=== PATIENT | female | born 1980 | race Caucasian/White ===

== ENCOUNTER 2017-02-21 14:48 | Emergency (ER) | payer BC ==
[2017-02-21 14:57] VITALS: BP 139/76
--- NOTE | 2017-02-21 15:03 | EDM.PDOC ---
ED HPI GENERAL MEDICAL PROBLEM - General Chief Complaint: General Stated Complaint: HEAD PAIN DIZZY Time Seen by Provider: 02/21/17 15:03 - History of Present Illness INITIAL COMMENTS - FREE TEXT/NARRATIVE: 36-year-old female presents emergency room with worsening neck and back pain. The patient has developed some neck and back pain getting worse over the last 4 days or so the patient is now extending into her arms it hurts for her to do any exertional activity with her arms. The patient works at [employer]. Approximately 5-6 days ago the patient helped her parents unload a moving van and did lots of heavy lifting that she is not used to doing. The patient does not have any shortness of breath however she is developing some chest discomfort with deep breathing. With further questioning seems to aggravate the neck and back pain that has been getting worse she has not had any lower extremity swelling. The patient is quite anxious. She describes the pain is been worse between her shoulder blades and shooting anteriorly into her chest. She has no history of hypertension hyperlipidemia heart problems or diabetes no family history of premature coronary artery disease she does not smoke she denies . Patient has been using 600-800 mg of ibuprofen 2-3 times a day and Tylenol thousand milligrams twice a day without much improvement Back Pain Score (Numeric/FACES): 9 - Related Data Allergies Allergy/AdvReac Type Severity Reaction Status Date / Time No Known Allergies Allergy Verified 03/15/14 10:34 CDT Home Meds: Home Meds Sertraline [Zoloft] 100 mg PO DAILY 03/15/14 [History] Cyclobenzaprine [Flexeril] 10 mg PO TID #15 tablet 02/21/17 [Rx] Montelukast [Singulair] 10 mg PO DAILY 02/21/17 [History] Social & Family History - Tobacco Use Smoking Status *Q: Never Smoker Second Hand Smoke Exposure: Yes - Recreational Drug Use Recreational Drug Use: No ED ROS GENERAL - Review of Systems Review Of Systems: See Below Constitutional: Reports: No Symptoms HEENT: Reports: No Symptoms Respiratory: Reports: No Symptoms, Other (She is developing some discomfort with deep breathing this is somewhat minimal) Cardiovascular: Reports: Chest Pain Endocrine: Reports: No Symptoms GI/Abdominal: Reports: No Symptoms Musculoskeletal: Reports: Neck Pain, Shoulder Pain, Arm Pain, Joint Swelling, Muscle Pain, Muscle Stiffness Neurological: Reports: No Symptoms ED EXAM, GENERAL - Physical Exam Exam: See Below Exam Limited By: Other (Patient is somewhat anxious otherwise no acute distress vital signs stable afebrile) General Appearance: Alert, Anxious (Mild) Head: Atraumatic, Normocephalic Neck: Supple, Other (She has some muscle tightness in the paraspinous muscles this tends to aggravate her condition. This extends into her shoulders bilaterally). No: Tender Lateral, Tender Midline Respiratory/Chest: No Respiratory Distress, Lungs Clear, Normal Breath Sounds, Other (Her pain is limited to her thoracic back neck and shoulders and upper arms all aggravated with motion and palpation. This is the same pain that brings her in) Cardiovascular: Normal Peripheral Pulses, Regular Rate, Rhythm, No Edema, No Murmur GI/Abdominal: Normal Bowel Sounds, Soft, Non-Tender Extremities: Other (She has discomfort in her upper extremities with motion otherwise the seem to be doing okay range of motion is not limited by offending motions do aggravate her back and neck discomfort) Neurological: Alert, Oriented, Normal Cognition, No Motor/Sensory Deficits EKG INTERPRETATION EKG Date: 02/21/17 Rhythm: NSR [place]: Normal P-Wave: Present QRS: Normal ST-T: Normal QT: Normal Comparison: NA - No Prior EKG Course - Vital Signs Last Recorded V/S: Last Vital Signs Temp 36.3 C 02/21/17 14:54 Pulse 85 02/21/17 14:54 Resp 16 02/21/17 14:54 BP 139/76 02/21/17 14:54 Pulse Ox 98 02/21/17 14:54 - Orders/Labs/Meds Orders: Active Orders 24 hr Category Date Time Status EKG 12 Lead [EKG Documentation Completion] [RC] STAT Care 02/21/17 15:02 Active EKG Documentation Completion [RC] STAT Care 02/21/17 15:27 Inactive Chest 2V [CR] Stat Exams 02/21/17 15:26 Taken Labs: Laboratory Tests 02/21/17 02/21/17 Range/Units 15:40 15:40 WBC 5.88 (3.98-10.04) K/mm3 RBC 4.49 (3.98-5.22) M/mm3 Hgb 13.5 (11.2-15.7) gm/L Hct 41.4 (34.1-44.9) % MCV 92.2 (79.4-94.8) fl MCH 30.1 (25.6-32.2) pg MCHC 32.6 (32.2-35.5) g/dl RDW Std Deviation 42.7 (36.4-46.3) fL Plt Count 313 (182-369) K/mm3 MPV 9.5 (9.4-12.3) fl Neutrophils % (Manual) 60 (40-60) % Band Neutrophils % 0 (0-10) % Lymphocytes % (Manual) 35 (20-40) % Atypical Lymphs % 0 % Monocytes % (Manual) 3 (2-10) % Eosinophils % (Manual) 1 (0.7-5.8) % Basophils % (Manual) 1 (0.1-1.2) Platelet Estimate Adequate Plt Morphology Comment Normal RBC Morph Comment Normal Sodium 141 (136-145) mEq/L Potassium 3.6 (3.5-5.1) mEq/L Chloride 105 (98-107) mEq/L Carbon Dioxide 26 (21-32) mEq/L Anion Gap 13.6 (5-15) BUN 8 (7-18) mg/dL Creatinine 0.7 (0.55-1.02) mg/dL Est Cr Clr Drug Dosing 121.79 mL/min Estimated GFR (MDRD) > 60 (>60) mL/min BUN/Creatinine Ratio 11.4 L (14-18) Glucose 94 (74-106) mg/dL Calcium 8.8 (8.5-10.1) mg/dL Total Bilirubin 0.3 (0.2-1.0) mg/dL AST 17 (15-37) U/L ALT 18 (14-59) U/L Alkaline Phosphatase 45 L (46-116) U/L Troponin I < 0.017 (0.00-0.056) ng/mL Total Protein 7.1 (6.4-8.2) g/dl Albumin 4.1 (3.4-5.0) g/dl Globulin 3.0 gm/dL Albumin/Globulin Ratio 1.4 (1-2) Meds: Medications Discontinued Medications Generic Name Dose Route Start Last Admin Trade Name Freq PRN Reason Stop Dose Admin Ketorolac Tromethamine 30 mg 02/21/17 17:23 02/21/17 17:29 Toradol IM 02/21/17 17:24 30 mg ONETIME ONE Administration - Re-Assessments/Exams Free Text/Narrative Re-Assessment/Exam: 02/21/17 18:26 Patient's pain is improved from an 8/10 to a 5 or 6 with 30 mg of IM Toradol she found the shot unpleasant her arm this is getting better now. Labs unrevealing chest x-ray normal. Troponin normal. The patient will continue her ibuprofen starting tomorrow and her Tylenol dose can be increased. She'll be started on Flexeril 10 mg 3 times a day for 2 days and then 1 in the evening thereafter I will take her off work the rest of today tomorr and Friday Departure - Departure Time of Disposition: 18:28 Disposition: Home, Self-Care 01 Clinical Impression: Cervical strain, acute, Strain of thoracic region - Discharge Information Prescriptions: Cyclobenzaprine [Flexeril] 10 mg PO TID #15 tablet Forms: ED Department Discharge Additional Instructions: Return to the emergency room with any questions problems or worsening symptoms. Follow-up in the Hospital clinic on Friday or Friday for recheck if needed. [phone] You have been started on Flexeril 10 mg take one 3 times a day through the weekend and then one at bedtime starting Friday. Increase your Tylenol 1000 mg 3 or 4 times a day and see if this helps. Continue the ibuprofen starting tomorrow morning 800 mg 3 times a day take with food. - My Orders Last 24 Hours: My Active Orders 02/21/17 15:02 EKG 12 Lead [EKG Documentation Completion] [RC] STAT 02/21/17 15:26 Chest 2V [CR] Stat 02/21/17 15:27 EKG Documentation Completion [RC] STAT - Assessment/Plan Last 24 Hours: My Active Orders 02/21/17 15:02 EKG 12 Lead [EKG Documentation Completion] [RC] STAT 02/21/17 15:26 Chest 2V [CR] Stat 02/21/17 15:27 EKG Documentation Completion [RC] STAT
[2017-02-21] MEDS ORDERED: Ketorolac 30 MG/ML SDV IM ONE (17:23)
--- NOTE | 2017-02-23 08:57 | CR ---
Chest: Two views of the chest were obtained. Comparison: No prior chest x-ray. Heart size and mediastinum are within normal limits. Lungs are clear. Bony structures are within normal limits for the patient's age. Impression: 1. Nothing acute is identified on two-view chest x-ray. Diagnostic code #1
== END 2017-02-21 18:40 | disposition home or self-care (01) ==
LOC: JD.ED 14:48
DX: S16.1XXA Strain of muscle, fascia and tendon at neck level, initial encounter (principal); S29.012A Strain of muscle and tendon of back wall of thorax, initial encounter; Z79.899 Other long term (current) drug therapy; X50.0XXA Overexertion from strenuous movement or load, initial encounter
CPT/HCPCS: 36415; 71020; 80053; 84484; 85025; 93005; 96372; 99285; J1885; 99284